=== PATIENT | female | born 1950 | race Hispanic/Latino ===

== ENCOUNTER 2017-07-13 22:33 | Emergency (ER) | payer MEDICARE, MEDICAID ==
[2017-07-13 23:11] LABS: #Basophils 0.1 thou/uL (0.0-0.2); #Eosinphils 0.2 thou/uL (0.0-0.7); #Lymphocytes 3.4 thou/uL (1.20-3.40); #Monocytes 0.7 thou/uL (0.11-0.59); #Neutrophils 4.3 thou/uL (1.40-6.50); %Eosinophils 1.9 % (0.0-10.0); %Monocytes 7.7 % (0.0-10.0); Hematocrit 35.8 % (36.0-47.0); Mean Platelet Volume 6.8 fL (7.4-10.4); Red Blood Cell (RBC) Count 3.72 mill/uL (4.20-5.40); White Blood Cell (WBC) Count 8.6 thou/uL (4.8-10.8)
[2017-07-13] MEDS ORDERED: Meclizine HCl 25 MG TAB ONE (23:15)
--- NOTE | 2017-07-13 23:20 | RAD ---
AP CHEST: Indication: Fall with history of syncope. IMPRESSION: No acute cardiopulmonary abnormality. The examination is not appreciably changed from the comparison study of 09-25-16. POS: [facility]
--- NOTE | 2017-07-13 23:24 | CT ---
CT BRAIN WITHOUT CONTRAST: Indication: Fall with history of dizziness. Comparison: 09-25-16 FINDINGS: No acute infarct, hemorrhage, or hydrocephalus is present. The septum pellucidum and third ventricle are midline. The mastoid air cells are clear. The paranasal sinuses are clear. The skull is intact. IMPRESSION: No acute intracranial abnormality. POS: [facility]
--- NOTE | 2017-07-13 23:25 | CT ---
CT OF THE CERVICAL SPINE WITHOUT CONTRAST: Indication: Fall with neck pain. Comparison: None. FINDINGS: No acute fracture or subluxation is evident. There is mild multilevel disc and facet osteoarthritic change. Osseous central canal is preserved. Craniocervical junction is normal appearing. Lung apices are clear. IMPRESSION: No acute osseous abnormality. POS: [facility]
[2017-07-13 23:33] LABS: ALT (SGPT) 11 U/L (8-55); AST (SGOT) 14 U/L (5-34); Alkaline Phosphatase 98 U/L (40-150); Anion Gap 12 mmol/L (10-20); BUN (Urea Nitrogen) 13 mg/dL (9.8-20.1); Bilirubin, Total 0.4 mg/dL (0.2-1.2); Calc. Creatinine Clearance 0 mL/min (70-130); Calcium 9.1 mg/dL (7.8-10.44); Carbon Dioxide 25 mmol/L (23-31); Chloride 103 mmol/L (98-107); Estimated GFR-MDRD Greater than 90; Magnesium 2.1 mg/dL (1.6-2.6)
[2017-07-13] MEDS ORDERED: Acetaminophen 325 MG TAB ONE ×2 (23:34)
[2017-07-13 23:37] LABS: Troponin I Less than 0.010 ng/mL (< 0.028)
--- NOTE | 2017-07-18 18:27 | EKG ---
Test Reason : Blood Pressure : / mmHG Vent. Rate : 086 BPM Atrial Rate : 086 BPM P-R Int : 136 ms QRS Dur : 086 ms QT Int : 362 ms P-R-T Axes : 064 003 024 degrees QTc Int : 433 ms Normal sinus rhythm Normal ECG Confirmed by TANYA Talley, MILAN Luciano ([id number]), content editor FLORES POSADA ([id number] on 07/18/2017 6:26:49 PM Referred By: Confirmed By:MILAN MARTÍNEZ M.D.
== END 2017-07-14 00:40 | disposition home or self-care (01) ==
LOC: ERS 22:33
DX: S09.90XA Unspecified injury of head, initial encounter (principal); R42 Dizziness and giddiness; E78.5 Hyperlipidemia, unspecified; F03.90 Unspecified dementia, unspecified severity, without behavioral disturbance, psychotic disturbance, mood disturbance, and anxiety; F32.9 Major depressive disorder, single episode, unspecified; Z79.82 Long term (current) use of aspirin; Z79.899 Other long term (current) drug therapy; W18.30XA Fall on same level, unspecified, initial encounter
CPT/HCPCS: 36415; 70450; 71010; 72125; 80053; 83735; 84484; 85025; 93005

== ENCOUNTER 2018-07-02 16:25 | Emergency (ER) | payer MEDICARE, MEDICAID ==
[2018-07-02] MEDS ORDERED: Metoclopramide HCl 10 MG/2 ML VIAL ONE (17:41)
[2018-07-02 18:08] LABS: #Basophils 0.1 thou/uL (0.0-0.2); #Eosinphils 0.1 thou/uL (0.0-0.7); #Lymphocytes 2.3 thou/uL (1.20-3.40); #Monocytes 0.4 thou/uL (0.11-0.59); #Neutrophils 3.6 thou/uL (1.40-6.50); %Basophils 0.8 % (0.0-1.0); %Eosinophils 1.7 % (0.0-10.0); %Lymphocytes 35.5 % (21.0-51.0); %Monocytes 6.3 % (0.0-10.0); %Neutrophils 55.8 % (42.0-75.0); Hemoglobin 12.3 g/dL (12.0-16.0); Mean Corpuscular HGB CONC 32.9 g/dL (32.0-36.0); Mean Corpuscular Hemoglobin 30.4 pg (27.0-31.0); Mean Corpuscular Volume 92.4 fL (78.0-98.0); Mean Platelet Volume 7.7 fL (7.4-10.4); Platelet Count 347 thou/uL (130-400); Red Blood Cell (RBC) Count 4.06 mill/uL (4.20-5.40); White Blood Cell (WBC) Count 6.4 thou/uL (4.8-10.8)
[2018-07-02] MEDS ORDERED: diphenhydrAMINE 50 MG/ML VIAL IVP SCH (18:15)
[2018-07-02 18:29] LABS: ALT (SGPT) 11 U/L (8-55); AST (SGOT) 19 U/L (5-34); Albumin 4.2 g/dL (3.4-4.8); Alkaline Phosphatase 101 U/L (40-150); Anion Gap 12 mmol/L (10-20); BUN (Urea Nitrogen) 9 mg/dL (9.8-20.1); Bilirubin, Total 0.4 mg/dL (0.2-1.2); Calc. Creatinine Clearance 0 mL/min (70-130); Calcium 9.3 mg/dL (7.8-10.44); Carbon Dioxide 25 mmol/L (23-31); Chloride 100 mmol/L (98-107); Estimated GFR-MDRD Greater than 90; Globulin 3.4 g/dL (2.4-3.5); Glucose 98 mg/dL (80-115); Potassium 4.1 mmol/L (3.5-5.1); Protein, Total 7.6 g/dL (6.0-8.3); Sodium 133 mmol/L (136-145)
[2018-07-02 18:32] LABS: CKMB 0.5 ng/mL (0-6.6); Troponin I Less than 0.010 ng/mL (< 0.028)
--- NOTE | 2018-07-02 18:47 | CT ---
NONCONTRAST HEAD CT: 07/02/18 COMPARISON: 07/13/17. HISTORY: Vertigo since yesterday. FINDINGS: No parenchymal hemorrhage. No extra-axial hematoma. No midline shift. Basilar cisterns are patent. Br ain volume, age appropriate . Cortical vazquez-white matter differentiation is preserved. Ventricles and sulci are patent and symmetric. The calvarium is intact. Adequate aeration of the sinuses and mastoid air cells. IMPRESSION: No acute intracranial process. POS: [facility]
[2018-07-02 18:55] LABS: Bilirubin Negative (Negative); Blood, Urine Negative (Negative); Clarity CLEAR (Clear); Glucose, Urine (Dipstick) Negative (Negative); Leukocyte Negative (Negative); Nitrite Negative (Negative); Protein, Urine (Dipstick) Negative (Neg-Trace); Urobilinogen 0.2 mg/dL (0.2-1.0); pH, Urine 7.5 (5.0-9.0)
[2018-07-02 18:57] LABS: Specific Gravity, Urine 1.003 (1.002-1.036)
== END 2018-07-02 21:07 | disposition home or self-care (01) ==
LOC: ERS 16:25
DX: R42 Dizziness and giddiness (principal); E78.5 Hyperlipidemia, unspecified; E11.9 Type 2 diabetes mellitus without complications; F32.9 Major depressive disorder, single episode, unspecified; Z86.73 Personal history of transient ischemic attack (TIA), and cerebral infarction without residual deficits; Z79.82 Long term (current) use of aspirin; Z79.899 Other long term (current) drug therapy
CPT/HCPCS: 70450; 80053; 81003; 82553; 84484; 85025; 94760; 96365; 96375; J1200; J2765

== ENCOUNTER 2019-07-28 17:29 | Emergency (ER) | payer MEDICARE, MEDICAID ==
[2019-07-28] MEDS ORDERED: Adacel (T-DAP) 0.5 ML SYRINGE ONE (18:11)
[2019-07-28] MEDS ORDERED: Acetaminophen 500 MG TAB ONE (18:16)
--- NOTE | 2019-07-28 18:39 | RAD ---
THREE VIEWS LEFT FOOT: 07/28/19 HISTORY: Cut on the top of foot when glass fell from top of closet. The patient was bleeding. FINDINGS: There are chronic mild degenerative changes involving the first metatarsophalangeal joint space and s econd metatarsophalangeal joint space. Lisfranc alignment is maintained. Joint spaces are preserved. There is no fracture. No significant dorsal soft tissue swelling. No radiopaque foreign body. IMPRESSION: No fracture or radiopaque foreign body. POS: [facility]
== END 2019-07-28 19:20 | disposition home or self-care (01) ==
LOC: ERS 17:29
DX: S91.312A Laceration without foreign body, left foot, initial encounter (principal); E78.5 Hyperlipidemia, unspecified; E11.9 Type 2 diabetes mellitus without complications; Z79.899 Other long term (current) drug therapy; W25.XXXA Contact with sharp glass, initial encounter
CPT/HCPCS: 90471; 90715

== ENCOUNTER 2020-02-18 18:26 | Emergency (ER) | payer MEDICARE, MEDICAID, OTHER | END 2020-02-18 19:19 | disposition home or self-care (01) | LOC: ERS 18:26 | DX: Z20.828 Contact with and (suspected) exposure to other viral communicable diseases (principal); F03.90 Unspecified dementia, unspecified severity, without behavioral disturbance, psychotic disturbance, mood disturbance, and anxiety; E78.5 Hyperlipidemia, unspecified; E78.00 Pure hypercholesterolemia, unspecified; R73.03 Prediabetes; F32.9 Major depressive disorder, single episode, unspecified; Z86.73 Personal history of transient ischemic attack (TIA), and cerebral infarction without residual deficits; Z79.899 Other long term (current) drug therapy; Z79.82 Long term (current) use of aspirin | CPT/HCPCS: 99282 ==

== ENCOUNTER 2020-06-27 21:32 | Observation (INO) | payer MEDICARE, MEDICAID, OTHER ==
[2020-06-27] MEDS ORDERED: Famotidine 20 MG TAB ONE (21:59)
[2020-06-27 22:10] LABS: #Basophils 0.1 thou/uL (0.0-0.2); #Eosinphils 0.2 thou/uL (0.0-0.7); #Lymphocytes 3.1 thou/uL (1.20-3.40); #Monocytes 0.5 thou/uL (0.11-0.59); #Neutrophils 3.1 thou/uL (1.40-6.50); %Basophils 0.8 % (0.0-1.0); %Eosinophils 2.3 % (0.0-10.0); %Lymphocytes 45.2 % (21.0-51.0); %Monocytes 7.3 % (0.0-10.0); %Neutrophils 44.5 % (42.0-75.0); Hemoglobin 11.7 g/dL (12.0-16.0); Mean Corpuscular HGB CONC 33.8 g/dL (32.0-36.0); Mean Corpuscular Hemoglobin 31.5 pg (27.0-31.0); Mean Corpuscular Volume 93.2 fL (78.0-98.0); Mean Platelet Volume 7.3 fL (7.4-10.4); Platelet Count 300 thou/uL (130-400); RBC Distribution Width 12.4 % (11.5-14.5); Red Blood Cell (RBC) Count 3.71 mill/uL (4.20-5.40); White Blood Cell (WBC) Count 6.9 thou/uL (4.8-10.8)
[2020-06-27 22:41] LABS: ALT (SGPT) 11 U/L (8-55); AST (SGOT) 14 U/L (5-34); Albumin 4.1 g/dL (3.4-4.8); Alkaline Phosphatase 97 U/L (40-110); Anion Gap 10 mmol/L (10-20); BUN (Urea Nitrogen) 11 mg/dL (9.8-20.1); Bilirubin, Total 0.3 mg/dL (0.2-1.2); CK (CPK) 84 U/L (29-168); Calc. Creatinine Clearance 0 mL/min (70-130); Calcium 9.1 mg/dL (7.8-10.44); Carbon Dioxide 27 mmol/L (23-31); Chloride 105 mmol/L (98-107); Estimated GFR-MDRD 84; Globulin 2.4 g/dL (2.4-3.5); Glucose 98 mg/dL (80-115); Potassium 3.8 mmol/L (3.5-5.1); Protein, Total 6.5 g/dL (6.0-8.3); Sodium 138 mmol/L (136-145)
--- NOTE | 2020-06-28 00:22 | PDOC.FPRHP ---
- History of Present Illness Chief Complaint: chest pain History of Present Illness: 70 yo F with PMH of DM2, alzheimers dementia, HTN, presents for sharp, left sided chest pain that started at 7PM on 06/27. Pain is non-radiating, and is exacerbated by walking or movement and relieved by rest, lasting seconds. She called EMS and took an aspirin at home prior to arrival. Denies associated SOB, nausea/vomiting, diaphoresis. She denies any history of heart problems. Denies cough or fever. In ED, EKG NSR, CXR wnl. Given famotidine. - Allergies/Adverse Reactions Allergies Allergy/AdvReac Type Severity Reaction Status Date / Time donepezil [From Aricept] Allergy Verified 06/28/20 02:00 hydrocodone Allergy Verified 06/28/20 02:00 No Known Drug Allergies Allergy Verified 12/05/14 01:08 - Home Medications Medication Instructions Recorded Confirmed Type FLUoxetine HCl [Prozac] 40 mg PO DAILY 02/19/13 06/28/20 History Aspirin Chewable [Aspirin Chewable 81 mg PO DAILY 11/07/13 06/28/20 History Tablet] Meclizine HCl 25 mg PO TID PRN 09/25/16 06/28/20 History Memantine HCl 5 mg PO BID 09/25/16 06/28/20 History Amlodipine Besylate [amLODIPine 1 tab PO DAILY 06/28/20 06/28/20 History Besylate] Atorvastatin Calcium [Lipitor] 1 tab PO HS 06/28/20 06/28/20 History Pantoprazole Sodium 20 mg PO DAILY 06/28/20 06/28/20 History - History Meds: ASA 81, memantine, Pepcid, amlodipine, fluoxetine, protonix, atorvastatin, meclizine Allergies: Aricept and hydrocodone per clinic chart PMH: DM2, GERD, HLD, Dementia, HTN, Hx of TIA with chronic ischemic small vessel disease seen on MRI, anxiety, depression PSH: Fallopian tube removal after ectopic , cataracts Social: Patient denies current t/a/d use. Reports smoking occasionally from age [age], could not give an estimated PPD. Lives with daughters. Family history: Depression and HTN - Review of Systems General: denies: fever/chills Eyes: denies: eye pain, vision changes ENT: denies: nasal congestion, rhinorrhea Respiratory: denies: cough, congestion, shortness of breath Cardiovascular: reports: chest pain. denies: palpitation, edema Gastrointestinal: denies: nausea, vomiting, diarrhea, constipation, abdominal pain, GI bleeding Genitourinary: denies: dysuria, other (denies hematuria) Skin: denies: rashes, lesions Musculoskeletal: denies: swelling, arthritis/arthralgias Neurological: reports: numbness (chronic paresthesias BLE), weakness (chronic weakness from past stroke) Psychological: reports: anxiety, depression - Vital signs P 87, R 17, BP 158/76, 96% on RA, weight - Physical Exam Constitutional: NAD, awake, alert and oriented HEENT: normocephalic and atraumatic, PERRLA, EOMI, conjunctiva clear, grossly normal vision, other (decreased hearing) Neck: supple, no LAD Heart: RRR, normal S1/S2, no murmurs/rubs/gallops, pulses present Lungs: CTAB, no respiratory distress Abdomen: soft, non-tender, bowel sounds present Skin: no rash/lesions, good turgor Heme/Lymphatic: no unusual bruising or bleeding, no purpura Psychiatric: normal mood and affect, other (poor remote memory) FMR H&P: Results - Labs Result Diagrams: 06/27/20 22:03 06/27/20 22:03 Lab results: WBC 6.9 thou/uL (4.8-10.8) 06/27/20 22:03 Hgb 11.7 g/dL (12.0-16.0) L 06/27/20 22:03 Hct 34.6 % (36.0-47.0) L 06/27/20 22:03 MCV 93.2 fL (78.0-98.0) 06/27/20 22:03 Plt Count 300 thou/uL (130-400) 06/27/20 22:03 Neutrophils % 44.5 % (42.0-75.0) 06/27/20 22:03 Sodium 138 mmol/L (136-145) 06/27/20 22:03 Potassium 3.8 mmol/L (3.5-5.1) 06/27/20 22:03 Chloride 105 mmol/L (98-107) 06/27/20 22:03 Carbon Dioxide 27 mmol/L (23-31) 06/27/20 22:03 BUN 11 mg/dL (9.8-20.1) 06/27/20 22:03 Creatinine 0.69 mg/dL (0.6-1.1) 06/27/20 22:03 Glucose 98 mg/dL (80-115) 06/27/20 22:03 Calcium 9.1 mg/dL (7.8-10.44) 06/27/20 22:03 Total Bilirubin 0.3 mg/dL (0.2-1.2) 06/27/20 22:03 AST 14 U/L (5-34) 06/27/20 22:03 ALT 11 U/L (8-55) 06/27/20 22:03 Alkaline Phosphatase 97 U/L (40-110) 06/27/20 22:03 Creatine Kinase 84 U/L (29-168) 06/27/20 22:03 Serum Total Protein 6.5 g/dL (6.0-8.3) 06/27/20 22:03 Albumin 4.1 g/dL (3.4-4.8) 06/27/20 22:03 - EKG Interpretation EKG: NSR - Radiology Interpretation Chest x-ray Status: image reviewed by me (NAD) FMR H&P: A/P - Problem List (1) Dementia Current Visit: No Status: Acute Code(s): F03.90 - UNSPECIFIED DEMENTIA WITHOUT BEHAVIORAL DISTURBANCE (2) Depression Current Visit: No Status: Acute Code(s): F32.9 - MAJOR DEPRESSIVE DISORDER, SINGLE EPISODE, UNSPECIFIED (3) GERD (gastroesophageal reflux disease) Current Visit: No Status: Acute Code(s): K21.9 - GASTRO-ESOPHAGEAL REFLUX DISEASE WITHOUT ESOPHAGITIS (4) HLD (hyperlipidemia) Current Visit: No Status: Acute Code(s): E78.5 - HYPERLIPIDEMIA, UNSPECIFIED Qualifiers: Hyperlipidemia type: unspecified Qualified Code(s): E78.5 - Hyperlipidemia, unspecified (5) Vertigo Current Visit: No Status: Acute Code(s): R42 - DIZZINESS AND GIDDINESS (6) TIA (transient ischemic attack) Current Visit: No Status: Suspected - Plan Atypical chest pain -EKG shows NSR, CXR WNL. S/p ASA, with HEART score of 4 -NPO for AM stress test -PRN nitro for chest pain -trending troponins -A1C, TSH, FLP pending Alzheimer dementia -Aware, resume memantine GERD -continue home medications -GI cocktail ordered DM2 -continue home metformin -A1C pending HTN -continue home amlodipine Hx TIA -aware HLD -continue atorvastatin Depression/Anxiety -Continue home fluoxetine PCP: [facility] Diet: NPO Fluids: LR @ 100 ml/hr Dispo: Admit to tele obs for AM stress test FMR H&P: Upper Level - Plan Date/Time: 06/28/20 0006 I, [], have evaluated this patient and agree with findings/plan as outlined by real estate internship resident. Pertinent changes/additions are listed here.
[2020-06-28] MEDS ORDERED: Acetaminophen 325 MG TAB PO PRN (00:30)
[2020-06-28] MEDS ORDERED: Ondansetron PF 4 MG/2 ML Vial IVP PRN (00:54)
[2020-06-28] MEDS ORDERED: Ondansetron ODT 4 MG TAB PO PRN (00:54)
[2020-06-28 01:02] VITALS: BMI 27.9
[2020-06-28] MEDS ORDERED: Nitroglycerin 0.4 MG TAB (25 Tab Bottle) SL PRN (01:03)
[2020-06-28 01:37] LABS: Troponin I Less than 0.010 ng/mL (< 0.028)
[2020-06-28] MEDS: Lactated Ringer's 1,000 ML IV SCH ×2 (01:41→12:38)
[2020-06-28 04:58] LABS: Hemoglobin A1c 5.7 % (4.0-6.0)
[2020-06-28 05:08] LABS: Troponin I Less than 0.010 ng/mL (< 0.028)
--- NOTE | 2020-06-28 05:58 | PDOC.FM ---
- Subjective Subjective: Patient was being wheeled to her Stress Test at the time of evaluation. Patient denied any acute overnight events, particularly with regard to repeat episodes of chest pain. Per review of the patient's rhythm strip, patient was in NSR since admission. - Objective Vital Signs & Weight: Vital Signs (12 hours) Temp Pulse Resp BP Pulse Ox 06/28/20 03:44 98.0 F 76 16 122/61 98 06/28/20 00:59 98.2 F 71 16 163/71 H 98 Weight Weight 69.3 kg Result Diagrams: 06/27/20 22:03 06/27/20 22:03 Phys Exam - Physical Examination Constitutional: NAD Neck: supple, full ROM Respiratory: no wheezing, no rales, no rhonchi, clear to auscultation bilateral Cardiovascular: RRR, no significant murmur, no rub Gastrointestinal: soft, non-tender, no distention, positive bowel sounds Musculoskeletal: no edema, pulses present Neurological: non-focal, moves all 4 limbs Psychiatric: normal affect Skin: no rash Dx/Plan (1) Atypical chest pain Code(s): R07.89 - OTHER CHEST PAIN Status: Acute (2) Dementia Code(s): F03.90 - UNSPECIFIED DEMENTIA WITHOUT BEHAVIORAL DISTURBANCE Status: Acute (3) Depression Code(s): F32.9 - MAJOR DEPRESSIVE DISORDER, SINGLE EPISODE, UNSPECIFIED Status: Acute (4) GERD (gastroesophageal reflux disease) Code(s): K21.9 - GASTRO-ESOPHAGEAL REFLUX DISEASE WITHOUT ESOPHAGITIS Status: Acute (5) HLD (hyperlipidemia) Code(s): E78.5 - HYPERLIPIDEMIA, UNSPECIFIED Status: Acute Qualifiers: Hyperlipidemia type: unspecified Qualified Code(s): E78.5 - Hyperlipidemia, unspecified - Plan Plan: Patient is a 70 y/o female with a PMH significant for Alzheimer's Disease, HTN and DM2 who presented to the hospital for evaluation of chest pain. 1. Atypical Chest Pain -Sharp, left-sided and associate with activity / relieved with rest -Trops: Negative x3 -CXR: NAF -EKG: NSR w/o ST-Segment changes -Heart Score: 4 -s/p ASA in ED -Nitro PRN Q5M for chest pain -A1C: 5.7 -TSH: 1.3 -FLP: Indicateds ASCVD Risk of 7.3% - consistent with patient's current statin dosing regimen -Stress Test: Pending 2. Alzheimer Dementia -Will restart patient's home Memantine regimen 3. GERD -Will restart patient's home Pantoprazole -GI Cocktail ordered 4. DM2 -POC Glucose: 98 -Will restart patient's home Metformin -A1C: 5.7 5. HTN -Several elevated pressures noted since admission - none in severe range -Will restart patient's home Amlodipine with outpatient follow-up recommended 6. Hx TIA -Will restart patient's home statin and ASA prior to DC 7. HLD -Will restart patient's home statin 8. Depression/Anxiety -Will restart patient's home Fluoxetine Code: Full PCP: [facility] Diet: NPO Activity: Ambulate w/ Assist IVF: LR @ 100 ml/hr VTE PPx: Lovenox 40 mg SC Daily GI PPx: Home Pantoprazole Dispo: Patient is currently stable and admitted to the Telemetry Floor for further observation and evaluation of Atypical Chest Pain. Will plan for Stress Test this AM and Cardiology consult if indicated. Expected LOS < 48H.
--- NOTE | 2020-06-28 07:26 | RAD ---
PORTABLE CHEST: HISTORY: Left-sided chest pain. COMPARISON: 07/13/2017 and 10/10/2019 exams. FINDINGS: Heart size is within normal limits. There is atherosclerotic change of the aorta. Linear scarring i n the left base. No focal infiltrates. No signs of failure. IMPRESSION: No active intrathoracic disease. POS: [facility]
[2020-06-28] MEDS ORDERED: ADENOSINE 60 MG/20 ML VIAL ONE (08:35)
[2020-06-28] MEDS ORDERED: Enoxaparin Sodium 40 MG/0.4 ML SYRINGE SC SCH (09:00)
[2020-06-28 12:06] VITALS: BP 144/67; TEMP 97.9
--- NOTE | 2020-06-28 12:09 | NM ---
EXAM: CARDIAC SPECT HISTORY: Chest pain, TIA, hypertension, diabetes, dyslipidemia, smoker TECHNIQUE: A myocardial perfusion scan was performed using the single isotope 1 day protocol with moe hnetium 99m sestamibi. [10 mCi] was injected intravenously for the rest exam followed by 30 mCi for the stress study. Pharmacologic stress with adenosine was monitored and interpreted by the physician's desk assistant. FINDINGS: Homogeneous tracer distribution is seen in the myocardial segments on stress and rest image s without fixed or reversible defects. Gated SPECT LVEF: 57% Wall motion exam: Normal IMPRESSION: Normal myocardial perfusion scan
[2020-06-28 12:51] LABS: SARS-CoV-2 MS2 Positive; SARS-CoV-2 N Gene Negative; SARS-CoV-2 S Gene Negative; SARS-CoV-2 by NAA Not Detected (NotDetected); SARS-CoV-2 orf1ab Negative
[2020-06-28] MEDS ORDERED: MECLIZINE HCL 25 MG PO PRN (14:13)
--- NOTE | 2020-06-28 14:30 | HP ---
CHIEF COMPLAINT: Sharp chest pain. HISTORY OF PRESENT ILLNESS: Ms. Wheeler is a 70-year-old lady with a history of type 2 diabetes and hypertension. She presented with sharp left-sided chest pain that started in the evening of 06/27. She was brought to the ER, admitted with chest pain rule out. When I saw her, she was pleasant, in no distress, having no chest pain. PHYSICAL EXAMINATION: VITAL SIGNS: Her blood pressure is 150/70, respirations 17, pulse rate of 80, pulse ox is 96% on room air. GENERAL: She is awake, alert, in no distress. EAR, NOSE, AND THROAT: No erythema or exudate. NECK: Supple. CARDIAC: Heart rhythm regular. No gallop or murmur noted. LUNGS: Clear without rales or wheezes. ABDOMEN: Flat and soft. No guarding or rebound. NEUROLOGIC: No focal deficits. LABORATORY DATA: CBC; white count 6900, hemoglobin 11.9, hematocrit 34.6, with an MCV of 93. Chemistries; her troponins are all less than 0.01 x3. Sodium 138, potassium 3.8, chloride 105, bicarb 27, BUN 11, creatinine 0.69, glucose 98. EKG shows no acute changes. The patient was admitted, underwent a stress Myoview, which was negative for ischemia. She has been subsequently discharged. Job ID: [id number]
[2020-06-28] MEDS ORDERED: Atorvastatin Calcium 40 MG TAB PO SCH ×2 (21:00)
[2020-06-28] MEDS ORDERED: FLU VACC QS2020-21(65YR UP)/PF 240 MCG/0.7 ML SYRINGE IM ONE (21:00)
--- NOTE | 2020-06-29 04:20 | DIS ---
DATE OF ADMISSION: 06/28/2020 DATE OF DISCHARGE: 06/28/2020 RESIDENT: Rj Weiner MD ADMITTING ATTENDING: Vanessa Sharif MD DISCHARGE ATTENDING: Luis Curran MD CONSULTS: None. PROCEDURES: Chest x-ray performed on 06/27, that demonstrated no acute processes. Nuclear medicine stress test which demonstrated normal myocardial perfusion. PRIMARY DIAGNOSIS: Atypical chest pain. SECONDARY DIAGNOSES: Alzheimer dementia, gastroesophageal reflux disease, type 2 diabetes, hypertension, history of transient ischemic attack, hyperlipidemia, depression, and anxiety. DISCHARGE MEDICATIONS: 1. Atorvastatin 40 mg p.o. daily. 2. Amlodipine 2.5 mg p.o. daily. 3. Aspirin 81 mg p.o. daily. 4. Fluoxetine 40 mg p.o. daily. 5. Meclizine 25 mg p.o. t.i.d. 6. Memantine 5 mg p.o. b.i.d. 7. Pantoprazole 20 mg p.o. daily. DISCONTINUED MEDICATIONS: None. HISTORY OF PRESENT ILLNESS AND HOSPITAL COURSE: The patient is a 70-year-old female with past medical history significant for type 2 diabetes, Alzheimer disease, hypertension, and GERD, who presents for evaluation of sharp left-sided chest pain that started at approximately 7 p.m. on 06/27. The patient stated the pain was nonradiating, was exacerbated by walking or movement and relieved by rest, but notes that it only lasted seconds. The patient called EMS and took an aspirin at home prior to arrival. The patient denies associated shortness of breath, nausea, vomiting, diaphoresis, or history of known heart disease. The patient also denied cough or fever. In the emergency department, the patient received an EKG which demonstrated normal sinus rhythm and a chest x-ray that was within normal limits. The patient was stable and was subsequently transferred to the telemetry floor for ongoing observation, risk stratification and planned stress test in the morning. The patient's initial troponins were less than 0.01, essentially negative x3, and stress test was also unremarkable and as mentioned elsewhere in this document. The patient was able to tolerate p.o. intake well and denied repeat episodes of chest pain. As such, it appeared that the chest pain was noncardiac in origin and the patient was subsequently prepped for discharge. Prior to discharge, patient's vital signs were recorded as temperature 97.9, pulse 70 beats per minute, blood pressure 144/67, respirations 14 breaths per minute, oxygen saturation 95% on room air. LABORATORY ANALYSIS: Revealed a sodium of 138, potassium 3.8, chloride 105, carbon dioxide 27, BUN 11, creatinine 0.69, glucose 98. Hemoglobin A1c 5.7. Calcium 9.1. Total bilirubin 0.3, AST 14, ALT 11, alkaline phosphatase 97. Creatine kinase 84. Troponins less than 0.01 x3. Triglycerides 49, cholesterol 117, LDL 49, HDL 58. . TSH 1.307. COVID negative. DISPOSITION: Stable. DISCHARGE INSTRUCTIONS: 1. Location: Home. 2. Diet: Heart healthy and diabetic diet. 3. Activity: No restrictions. FOLLOWUP: The patient was encouraged to follow up with her primary care provider in approximately 1 to 2 weeks and will discuss her most recent hospitalization. Additionally, the patient was encouraged to discuss ongoing management of blood pressure and possible medication adjustments if needed. Job ID: [id number]
[2020-06-29] MEDS ORDERED: Non-Formulary Item 1 EACH (Amlodipine Besylate [Amlodipine Besylate] 2.5 MG Tablet) PO SCH (09:00)
[2020-06-29] MEDS ORDERED: Non-Formulary Item 1 EACH (Pantoprazole Sodium [Pantoprazole Sodium] 20 MG Tablet.Dr) PO SCH (09:00)
[2020-06-29] MEDS ORDERED: FLUoxetine HCl 10 MG CAP PO SCH (09:00)
[2020-06-29] MEDS ORDERED: Aspirin Chewable 81 MG TAB PO SCH (09:00)
== END 2020-06-28 15:45 | disposition home or self-care (01) ==
LOC: ERS 21:32 → 2NO 06-28 00:54
PROVIDERS: ADMIT Family Medicine; ATTEND Family Medicine
DX: R07.89 Other chest pain (principal); G30.9 Alzheimer's disease, unspecified; F02.80 Dementia in other diseases classified elsewhere, unspecified severity, without behavioral disturbance, psychotic disturbance, mood disturbance, and anxiety; K21.9 Gastro-esophageal reflux disease without esophagitis; E11.9 Type 2 diabetes mellitus without complications; I10 Essential (primary) hypertension; E78.5 Hyperlipidemia, unspecified; F41.9 Anxiety disorder, unspecified; F32.9 Major depressive disorder, single episode, unspecified; R42 Dizziness and giddiness; Z86.73 Personal history of transient ischemic attack (TIA), and cerebral infarction without residual deficits; Z87.891 Personal history of nicotine dependence; Z79.82 Long term (current) use of aspirin; Z79.84 Long term (current) use of oral hypoglycemic drugs; Z79.899 Other long term (current) drug therapy; Z88.5 Allergy status to narcotic agent; Z88.8 Allergy status to other drugs, medicaments and biological substances; Z20.828 Contact with and (suspected) exposure to other viral communicable diseases
CPT/HCPCS: 71045; 78452; 80053; 80061; 82550; 83036; 84443; 84484 ×3; 85025; 93005; 93017; 94760; 96372; 97139; A9500; G0378; U0003; 36415; 87635; J0153; J1650

== ENCOUNTER 2020-08-16 14:25 | Outpatient (CLI) | payer MEDICARE, MEDICAID ==
--- NOTE | 2020-08-16 14:56 | MMO ---
Bilateral MAMMO Bilat Screen [facility]. CLINICAL HISTORY: Patient is 70 years old and is seen for screening. The patient has the following family history of breast cancer: daughter, at age 37. The patient has no personal history of cancer. VIEWS: The views performed were: bilateral craniocaudal with tomosynthesis and bilateral mediolateral oblique with tomosynthesis. FILMS COMPARED: The present examination has been compared to prior imaging studies performed at [facility] on 03/09/2009, 06/21/2010, 11/22/2012 and 11/28/2013. This study has been interpreted with the assistance of computer-aided detection. MAMMOGRAM FINDINGS: There are scattered fibroglandular densities. There are benign appearing calcifications seen in both breasts. There are also vascular calcifications. There are no suspicious masses, suspicious calcifications, or new areas of architectural distortion. IMPRESSION: THERE IS NO MAMMOGRAPHIC EVIDENCE OF MALIGNANCY. A ROUTINE FOLLOW-UP MAMMOGRAM IN 1 YEAR IS RECOMMENDED. THE RESULTS OF THIS EXAM WERE SENT TO THE PATIENT. ACR BI-RADS Category 2 - Benign finding MAMMOGRAPHY NOTE: 1. A negative mammogram report should not delay a biopsy if a dominant of clinically suspicious mass is present. 2. Approximately 10% to 15% of breast cancers are not detected by mammography. 3. Adenosis and dense breasts may obscure an underlying neoplasm. Reported by: CB NOLAND MD Electonically Signed: [id number]
== END 2020-08-16 14:26 | disposition home or self-care (01) ==
LOC: BICMAMMO 14:25
PROVIDERS: ATTEND Student in an Organized Health Care Education/Training Program
DX: Z12.31 Encounter for screening mammogram for malignant neoplasm of breast (principal); Z80.3 Family history of malignant neoplasm of breast
CPT/HCPCS: 77063; 77067

== ENCOUNTER 2020-09-03 21:21 | Emergency (ER) | payer MEDICARE, MEDICAID ==
[~2020-09-03 21:21] MED LIST: Iopamidol-370 76% 500 ML 1 ML ONE
[2020-09-03] MEDS ORDERED: Ondansetron PF 4 MG/2 ML Vial ONE (23:11)
[2020-09-03 23:39] LABS: #Lymphocytes 0.7 thou/uL (1.20-3.40); #Monocytes 0.6 thou/uL (0.11-0.59); #Neutrophils 6.3 thou/uL (1.40-6.50); %Basophils 0.2 % (0.0-1.0); %Eosinophils 0.4 % (0.0-10.0); %Lymphocytes 9.4 % (21.0-51.0); %Monocytes 7.5 % (0.0-10.0); %Neutrophils 82.5 % (42.0-75.0); Hemoglobin 12.9 g/dL (12.0-16.0); Mean Corpuscular Hemoglobin 31.3 pg (27.0-31.0); Mean Corpuscular Volume 92.3 fL (78.0-98.0); Mean Platelet Volume 7.3 fL (7.4-10.4); Platelet Count 269 thou/uL (130-400); RBC Distribution Width 12.4 % (11.5-14.5); White Blood Cell (WBC) Count 7.6 thou/uL (4.8-10.8)
[2020-09-03 23:54] LABS: Bilirubin Negative (Negative); Blood, Urine Negative (Negative); Clarity Clear (Clear); Glucose, Urine (Dipstick) Normal (Negative); Ketone, Urine 60 mg/dL (Negative); Leukocyte Negative Leu/uL (Negative); Nitrite Negative (Negative); Protein, Urine (Dipstick) Negative (Neg-Trace); Specific Gravity, Urine 1.012 (1.002-1.036); Urobilinogen Normal mg/dL (Less than 2); pH, Urine 6.5 (5.0-9.0)
[2020-09-04 00:02] LABS: ALT (SGPT) 13 U/L (8-55); AST (SGOT) 16 U/L (5-34); Albumin 4.5 g/dL (3.4-4.8); Alkaline Phosphatase 110 U/L (40-110); Anion Gap 14 mmol/L (10-20); BUN (Urea Nitrogen) 7 mg/dL (9.8-20.1); Bilirubin, Total 0.7 mg/dL (0.2-1.2); Calc. Creatinine Clearance 0 mL/min (70-130); Calcium 9.5 mg/dL (7.8-10.44); Carbon Dioxide 25 mmol/L (23-31); Chloride 97 mmol/L (98-107); Globulin 3.3 g/dL (2.4-3.5); Glucose 123 mg/dL (80-115); Lipase 14 U/L (8-78); Protein, Total 7.8 g/dL (6.0-8.3); Sodium 133 mmol/L (136-145)
--- NOTE | 2020-09-04 08:11 | CT ---
CT ABDOMEN AND PELVIS WITH CONTRAST: COMPARISON: 09/11/2008. HISTORY: Nausea, vomiting, and diarrhea as well as abdominal pain over the last week. TECHNIQUE: Multiple contiguous axial images were obtained in a CT of the abdomen and pelvis with contrast. Sagi ttal and coronal reformats were performed. FINDINGS: There is a 9.5 cm cyst in the right kidney. The liver, gallbladder, left kidney, adrenal glands, spl een, and pancreas are unremarkable. No free air, free fluid, or stranding changes are seen in the abdomen or pelvis. The reproductive or deepak are unremarkable. The large and small bowel are unremarkable. No abdominal or pelvic lymphadeno [place] are seen. Atherosclerotic calcifications are seen in the aorta. Degenerative changes are seen in the spine. The visualized inferior thorax and abdominal wall soft t issues are unremarkable. IMPRESSION: Right renal cyst. POS: [facility]
== END 2020-09-04 01:50 | disposition home or self-care (01) ==
LOC: ERS 21:21
DX: R11.2 Nausea with vomiting, unspecified (principal); R19.7 Diarrhea, unspecified; E78.5 Hyperlipidemia, unspecified; E78.00 Pure hypercholesterolemia, unspecified; F03.90 Unspecified dementia, unspecified severity, without behavioral disturbance, psychotic disturbance, mood disturbance, and anxiety; E11.9 Type 2 diabetes mellitus without complications
CPT/HCPCS: 74177; 80053; 81003; 83690; 84443; 84484; 85025; 93005; 96374; J2405; Q9967

== ENCOUNTER 2020-10-04 13:32 | Outpatient (CLI) | payer MEDICARE, MEDICAID ==
--- NOTE | 2020-10-04 15:39 | ULT ---
RENAL ULTRASOUND: INDICATION: Renal cyst. COMPARISON: Correlation is made to CT scan of 09/04/2020 which described a 9-10 cm cyst from the inferior right k idney. FINDINGS: Ultrasound reveals a large cyst in the inferior right kidney measuring 9 cm corresponding to the rece nt CT. Kidneys are otherwise unremarkable. The urinary bladder is distended and unremarkable. IMPRESSION: Large right renal cyst. Exam otherwise unremarkable. POS: [facility]
== END 2020-10-04 13:33 | disposition home or self-care (01) ==
LOC: BICULT 13:32
PROVIDERS: ATTEND Family Medicine
DX: N28.1 Cyst of kidney, acquired (principal)
CPT/HCPCS: 76770

== ENCOUNTER 2021-10-16 11:36 | Observation (INO) | payer MEDICARE, MEDICAID ==
[2021-10-16 13:54] LABS: #Lymphocytes 2.5 thou/uL (1.20-3.40); #Monocytes 0.6 thou/uL (0.11-0.59); #Neutrophils 5.7 thou/uL (1.40-6.50); %Basophils 0.2 % (0.0-1.0); %Eosinophils 0.3 % (0.0-10.0); %Lymphocytes 28.9 % (21.0-51.0); %Monocytes 6.3 % (0.0-10.0); %Neutrophils 64.3 % (42.0-75.0); Hemoglobin 11.5 g/dL (12.0-16.0); Mean Corpuscular HGB CONC 33.2 g/dL (32.0-36.0); Mean Corpuscular Hemoglobin 31.9 pg (27.0-31.0); Mean Corpuscular Volume 96.2 fL (78.0-98.0); Platelet Count 370 thou/uL (130-400); RBC Distribution Width 12.1 % (11.5-14.5); Red Blood Cell (RBC) Count 3.62 mill/uL (4.20-5.40); White Blood Cell (WBC) Count 8.8 thou/uL (4.8-10.8)
[2021-10-16 14:18] LABS: ALT (SGPT) 14 U/L (8-55); AST (SGOT) 15 U/L (5-34); Alkaline Phosphatase 90 U/L (40-110); Anion Gap 14 mmol/L (10-20); BUN (Urea Nitrogen) 28 mg/dL (9.8-20.1); Bilirubin, Total 0.3 mg/dL (0.2-1.2); Calc. Creatinine Clearance 0 mL/min (70-130); Calcium 9.4 mg/dL (7.8-10.44); Carbon Dioxide 23 mmol/L (23-31); Chloride 104 mmol/L (98-107); Globulin 2.7 g/dL (2.4-3.5); Glucose 102 mg/dL (83-110); Protein, Total 6.7 g/dL (5.8-8.1); Sodium 137 mmol/L (136-145)
[2021-10-16] MEDS ORDERED: Ondansetron PF 4 MG/2 ML Vial ONE (16:09)
[2021-10-16 18:03] LABS: Bilirubin Negative (Negative); Blood, Urine Negative (Negative); Clarity Clear (Clear); Glucose, Urine (Dipstick) Normal (Negative); Ketone, Urine Trace mg/dL (Negative); Leukocyte Negative Leu/uL (Negative); Nitrite Negative (Negative); Protein, Urine (Dipstick) Negative (Neg-Trace); Specific Gravity, Urine 1.012 (1.002-1.036); Urobilinogen Normal mg/dL (Less than 2)
[2021-10-16 18:20] VITALS: BMI 26.9
[2021-10-16] MEDS ORDERED: Sodium Chloride 0.9% 1,000 ML IV SCH (19:00)
[2021-10-16] MEDS ORDERED: Calcium Carbonate 500 MG ChewTAB PO PRN (20:24)
[2021-10-16] MEDS ORDERED: Acetaminophen 325 MG TAB PO PRN (20:24)
[2021-10-16] MEDS ORDERED: Acetaminophen 650 MG Suppository PR PRN (20:24)
[2021-10-16] MEDS ORDERED: Meclizine HCl 25 MG TAB PO PRN (20:39)
[2021-10-16] MEDS ORDERED: Famotidine 20 MG TAB PO SCH (21:00)
[2021-10-16 21:07] LABS: SARS-CoV-2 PCR by NAA Not Detected (NotDetected)
[2021-10-16 21:25] LABS: PTT 30.4 sec (22.9-36.1); Prothrombin Time 13.4 sec (12.0-14.7)
[2021-10-16] MEDS: Mirtazapine 30 MG Soltab PO SCH (21:28)
[2021-10-16] MEDS: Atorvastatin Calcium 40 MG TAB PO SCH (21:28)
[2021-10-17 08:06] LABS: #Eosinphils 0.1 thou/uL (0.0-0.7); #Lymphocytes 2.1 thou/uL (1.20-3.40); #Monocytes 0.4 thou/uL (0.11-0.59); #Neutrophils 2.4 thou/uL (1.40-6.50); %Basophils 0.6 % (0.0-1.0); %Eosinophils 1.8 % (0.0-10.0); %Lymphocytes 41.1 % (21.0-51.0); %Monocytes 8.2 % (0.0-10.0); %Neutrophils 48.4 % (42.0-75.0); Hemoglobin 8.6 g/dL (12.0-16.0); Mean Corpuscular HGB CONC 33.2 g/dL (32.0-36.0); Mean Corpuscular Hemoglobin 32.5 pg (27.0-31.0); Mean Corpuscular Volume 98.1 fL (78.0-98.0); Mean Platelet Volume 6.9 fL (7.4-10.4); Platelet Count 260 thou/uL (130-400); RBC Distribution Width 12.1 % (11.5-14.5); Red Blood Cell (RBC) Count 2.64 mill/uL (4.20-5.40)
[2021-10-17] MEDS: FLUoxetine HCl 20 MG CAP PO SCH (08:35)
[2021-10-17] MEDS: Amlodipine 5 MG TAB PO SCH (08:35)
[2021-10-17] MEDS: Mirtazapine 30 MG Soltab PO SCH ×2 (08:35→21:36)
[2021-10-17] MEDS: Aripiprazole 2 MG TAB PO SCH (08:35)
[2021-10-17 08:39] LABS: Anion Gap 9 mmol/L (10-20); BUN (Urea Nitrogen) 12 mg/dL (9.8-20.1); Calc. Creatinine Clearance 102 mL/min (70-130); Calcium 7.8 mg/dL (7.8-10.44); Carbon Dioxide 21 mmol/L (23-31); Chloride 111 mmol/L (98-107); Glucose 89 mg/dL (83-110); Potassium 3.4 mmol/L (3.5-5.1); Sodium 138 mmol/L (136-145)
[2021-10-17] MEDS ORDERED: FLU VACC QS2021-22(65YR UP)/PF 240 MCG/0.7 ML SYRINGE IM ONE (09:00)
[2021-10-17] MEDS ORDERED: Potassium Chloride 20 MEQ in Premix Bag 1 BAG IVPB SCH (10:00)
[2021-10-17] MEDS ORDERED: Potassium Chloride 20 MEQ TAB PO SCH (11:00)
[2021-10-17] MEDS ORDERED: PROPOFOL 200 MG/20 ML VIAL ONE (13:07)
[2021-10-17] MEDS ORDERED: Lidocaine 1% PF 5 ML VIAL ONE (13:07)
[2021-10-17] MEDS ORDERED: Ondansetron HCl/PF 4 MG/2 ML Vial IVP PRN (13:33)
[2021-10-17] MEDS ORDERED: Lidocaine 2% Viscous Solution 10 ML, Aluminum & Magnesium Hydroxide 30 ML SSW PRN (17:00)
[2021-10-17 21:18] LABS: Hemoglobin 9.7 g/dL (12.0-16.0); Platelet Count 290 thou/uL (130-400)
[2021-10-17] MEDS: Atorvastatin Calcium 40 MG TAB PO SCH (21:35)
[2021-10-18 07:55] LABS: #Eosinphils 0.1 thou/uL (0.0-0.7); #Lymphocytes 1.9 thou/uL (1.20-3.40); #Monocytes 0.4 thou/uL (0.11-0.59); #Neutrophils 3.1 thou/uL (1.40-6.50); %Basophils 0.8 % (0.0-1.0); %Eosinophils 1.6 % (0.0-10.0); %Lymphocytes 33.6 % (21.0-51.0); Hemoglobin 9.9 g/dL (12.0-16.0); Mean Corpuscular HGB CONC 33.9 g/dL (32.0-36.0); Mean Corpuscular Hemoglobin 32.8 pg (27.0-31.0); Mean Corpuscular Volume 96.6 fL (78.0-98.0); Mean Platelet Volume 6.7 fL (7.4-10.4); Platelet Count 286 thou/uL (130-400); RBC Distribution Width 12.1 % (11.5-14.5); Red Blood Cell (RBC) Count 3.01 mill/uL (4.20-5.40); White Blood Cell (WBC) Count 5.6 thou/uL (4.8-10.8)
[2021-10-18] MEDS ORDERED: Nitroglycerin 0.4 MG TAB (25 Tab Bottle) ONE (08:03)
[2021-10-18 08:13] LABS: Anion Gap 11 mmol/L (10-20); BUN (Urea Nitrogen) 7 mg/dL (9.8-20.1); Calc. Creatinine Clearance 86 mL/min (70-130); Calcium 8.8 mg/dL (7.8-10.44); Carbon Dioxide 24 mmol/L (23-31); Chloride 104 mmol/L (98-107); Glucose 109 mg/dL (83-110); Potassium 3.9 mmol/L (3.5-5.1); Sodium 135 mmol/L (136-145)
[2021-10-18 08:44] VITALS: BP 118/71; TEMP 98.1
[2021-10-18] MEDS: FLUoxetine HCl 20 MG CAP PO SCH (08:53)
[2021-10-18] MEDS: Amlodipine 5 MG TAB PO SCH (08:54)
[2021-10-18] MEDS: Mirtazapine 30 MG Soltab PO SCH (08:55)
[2021-10-18] MEDS: Aripiprazole 2 MG TAB PO SCH (08:55)
== END 2021-10-18 14:07 | disposition home or self-care (01) ==
LOC: ERS 11:36 → T4-B 17:04
PROVIDERS: ADMIT Family Medicine; ATTEND Family Medicine
PROC: 0DJ08ZZ Inspection of Upper Intestinal Tract, Via Natural or Artificial Opening Endoscopic (ICD-10-PCS; principal; 2021-10-16)
DX: K21.01 Gastro-esophageal reflux disease with esophagitis, with bleeding (principal); K22.11 Ulcer of esophagus with bleeding; R13.10 Dysphagia, unspecified; J02.9 Acute pharyngitis, unspecified; I10 Essential (primary) hypertension; E78.5 Hyperlipidemia, unspecified; G30.9 Alzheimer's disease, unspecified; F02.80 Dementia in other diseases classified elsewhere, unspecified severity, without behavioral disturbance, psychotic disturbance, mood disturbance, and anxiety; Z86.73 Personal history of transient ischemic attack (TIA), and cerebral infarction without residual deficits; Z87.891 Personal history of nicotine dependence; Z79.2 Long term (current) use of antibiotics; Z79.899 Other long term (current) drug therapy; Z20.822 Contact with and (suspected) exposure to COVID-19
CPT/HCPCS: 43235; 71045; 80048 ×2; 80053; 81003; 85014; 85018; 85025 ×3; 85049; 85610; 85730; 86850; 86900; 86901; 87086; 94760; 96374; 96375; 99285; U0003; U0005; 36415; 82274; G0378; J2405; J2704; J7050

== ENCOUNTER 2022-11-10 21:35 | Emergency (ER) | payer MEDICARE, MEDICAID ==
[2022-11-10 22:26] LABS: #Basophils 0.1 thou/uL (0.0-0.2); #Eosinphils 0.2 thou/uL (0.0-0.7); #Lymphocytes 2.4 thou/uL (1.20-3.40); #Monocytes 0.5 thou/uL (0.11-0.59); #Neutrophils 3.4 thou/uL (1.40-6.50); %Basophils 1.5 % (0.0-1.0); %Eosinophils 2.9 % (0.0-10.0); %Lymphocytes 36.6 % (21.0-51.0); %Neutrophils 52.1 % (42.0-75.0); Hemoglobin 11.5 g/dL (12.0-16.0); Mean Corpuscular HGB CONC 34.1 g/dL (32.0-36.0); Mean Corpuscular Hemoglobin 32.5 pg (27.0-31.0); Mean Corpuscular Volume 95.3 fl (78.0-98.0); Mean Platelet Volume 7.3 fL (7.4-10.4); Platelet Count 275 10x3/uL (130-400); RBC Distribution Width 12.6 % (11.5-14.5); Red Blood Cell (RBC) Count 3.54 mill/uL (4.20-5.40); White Blood Cell (WBC) Count 6.6 10x3/uL (4.8-10.8)
[2022-11-10 22:47] LABS: ALT (SGPT) 12 U/L (8-55); AST (SGOT) 15 U/L (5-34); Albumin 3.9 g/dL (3.4-4.8); Alkaline Phosphatase 120 U/L (40-110); Anion Gap 11 mmol/L (10-20); BUN (Urea Nitrogen) 14 mg/dL (9.8-20.1); Bilirubin, Total 0.3 mg/dL (0.2-1.2); Calc. Creatinine Clearance 0 mL/min (70-130); Calcium 8.9 mg/dL (7.8-10.44); Carbon Dioxide 24 mmol/L (23-31); Chloride 105 mmol/L (98-107); Estimated GFR 92; Globulin 2.4 g/dL (2.4-3.5); Glucose 89 mg/dL (83-110); Potassium 3.9 mmol/L (3.5-5.1); Protein, Total 6.3 g/dL (5.8-8.1); Sodium 136 mmol/L (136-145)
[2022-11-10] MEDS ORDERED: Meclizine HCl 25 MG TAB ONE (23:37)
[2022-11-11] MEDS ORDERED: Ondansetron PF 4 MG/2 ML Vial ONE (00:04)
== END 2022-11-11 00:30 | disposition home or self-care (01) ==
LOC: ERS 21:35
DX: R55 Syncope and collapse (principal); E78.00 Pure hypercholesterolemia, unspecified; E11.9 Type 2 diabetes mellitus without complications; F03.90 Unspecified dementia, unspecified severity, without behavioral disturbance, psychotic disturbance, mood disturbance, and anxiety; Z79.899 Other long term (current) drug therapy
CPT/HCPCS: 36415; 70450; 71045; 80053; 84484; 85025; 93005; J2405

== ENCOUNTER 2022-12-23 09:56 | Outpatient (CLI) | payer MEDICARE, MEDICAID | END 2022-12-23 09:57 | disposition home or self-care (01) | LOC: PET 09:56 | PROVIDERS: ATTEND Psychiatry & Neurology Neurology | DX: F03.B18 Unspecified dementia, moderate, with other behavioral disturbance (principal); I67.89 Other cerebrovascular disease; G93.40 Encephalopathy, unspecified | CPT/HCPCS: 70553; 78803; 95816; 95957; A9552 ==

== ENCOUNTER 2023-01-16 10:47 | Outpatient (CLI) | payer MEDICARE, MEDICAID | END 2023-01-16 10:48 | disposition home or self-care (01) | LOC: BICMAMMO 10:47 | PROVIDERS: ATTEND Student in an Organized Health Care Education/Training Program | DX: Z12.31 Encounter for screening mammogram for malignant neoplasm of breast (principal); Z80.3 Family history of malignant neoplasm of breast | CPT/HCPCS: 77063; 77067 ==